=== PATIENT | female | born 1960 | race Two or more races ===

== ENCOUNTER 2021-05-28 14:19 | Emergency (ER) | payer OTHER ==
[~2021-05-28] VITALS: Ht 165.1 cm; Wt 68.0 kg
[2021-05-28] MEDS ORDERED: COZAAR100 MG PO (14:29)
[2021-05-28] MEDS ORDERED: TENORMIN50 M1 PO (14:29)
== END 2021-05-28 18:14 | disposition home or self-care (01) ==
LOC: ER 14:19
DX: S92.911A Unspecified fracture of right toe(s), initial encounter for closed fracture (principal); W22.8XXA Striking against or struck by other objects, initial encounter; Y93.01 Activity, walking, marching and hiking; Y92.018 Other place in single-family (private) house as the place of occurrence of the external cause; Y99.8 Other external cause status